=== PATIENT | female | born 1960 | race Caucasian/White ===

== ENCOUNTER 2018-07-13 12:35 | Emergency (ER) | payer BC ==
[~2018-07-13] VITALS: Ht 152.4 cm; Wt 79.4 kg
[~2018-07-13 12:35] MED LIST: ALBUTEROL2.5 MG/3 M INH; FENOFIBRATE134 MG PO; MONTELUKAST SOD10 MG PO; OMEPRAZOLE20 MG PO; PAXIL20 MG PO; PREDNISONE20 MG PO
[2018-07-13] MEDS ORDERED: NORCO 5-325 TA1 EACH PO (14:29)
== END 2018-07-13 14:41 | disposition home or self-care (01) ==
LOC: ED 12:35
DX: S83.92XA Sprain of unspecified site of left knee, initial encounter (principal); J45.909 Unspecified asthma, uncomplicated; Z87.891 Personal history of nicotine dependence; Z79.52 Long term (current) use of systemic steroids; X50.1XXA Overexertion from prolonged static or awkward postures, initial encounter
CPT/HCPCS: 73560; 99283

== ENCOUNTER 2022-07-30 14:40 | Emergency (ER) | payer BC ==
[~2022-07-30] VITALS: Ht 154.9 cm; Wt 77.1 kg
[~2022-07-30 14:40] MED LIST changes: +NORCO 5-325 TA1 EACH PO; +SINGULAIR10 MG PO
[2022-07-30] MEDS ORDERED: ATORVASTATIN CA20 MG PO (14:47)
[2022-07-30] MEDS ORDERED: METFORMIN HCL500 MG PO (14:47)
[2022-07-30] MEDS ORDERED: HYDROCODON-ACE1 EA11 PO (16:02)
== END 2022-07-30 16:28 | disposition home or self-care (01) ==
LOC: ED 14:40
DX: S83.91XA Sprain of unspecified site of right knee, initial encounter (principal); J45.909 Unspecified asthma, uncomplicated; Z87.891 Personal history of nicotine dependence; Z79.899 Other long term (current) drug therapy; Z79.84 Long term (current) use of oral hypoglycemic drugs; X58.XXXA Exposure to other specified factors, initial encounter
CPT/HCPCS: 73560; 99283-25; A9270

== ENCOUNTER 2022-10-06 06:18 | Day surgery (SDC) | payer BC ==
[2022-10-03 10:21] VITALS: BP 129/84
[~2022-10-06] VITALS: Ht 154.9 cm; Wt 79.5 kg
[~2022-10-06 06:18] MED LIST changes: +ATORVASTATIN CA20 MG PO; +HYDROCODON-ACE1 EA11 PO; +METFORMIN HCL500 MG PO
[2022-10-06] MEDS ORDERED: CO Q-10100 MG PO (06:38)
[2022-10-06 06:43] VITALS: BP 132/85
[2022-10-06] MEDS ORDERED: CELECOXIB200 MG PO (08:27)
[2022-10-06] MEDS ORDERED: HYDROCODON-ACE1 EA10 PO (08:27)
--- NOTE | 2022-10-06 08:43 | NUR ---
10/06/22 0843 Meena Pratt 0826- PT ARRIVES TO PACU NONAROUSABLE TO STIMULI. PT NEEDING A JAW THRUST TO MAINTAIN PATENT AIRWAY. RESP EVEN AND UNLABORED. OXYGEN SAT MID TO HIGH 90'S ON 6L VIA MASK. OXYGEN SAT INCREASING WITH JAW THRUST. 0835- CBG 116. 0836- PT AROUSING TO STIMULI. PT OPENS HER EYES. PT ENCOURAGED TO TAKE DEEP BREATHS. PT FALLS INSTANTLY BACK TO SLEEP. PT IS ABLE TO MAINTAIN HER OWN AIRWAY WITHOUT A JAW THRUST. 0841- PT AROUSABLE TO STIMULI. ENCOURAGED TO TAKE BREATHS SHE IS SNORING WHEN ASLEEP. PT IS ABLE TO DO THIS AND INSTANTLY FALLS BACK TO SLEEP.
[2022-10-06 09:21] VITALS: BP 137/82
--- NOTE | 2022-10-06 09:27 | NUR ---
0915 PT BACK TO DS. DENIES NAUSEA, REPORTS DISCOMFORT TO RT KNEE. 12/02. WATER GRAHM CRACKERS AND COFFEE GIVEN PT TOLERATES WELL. AT BED SIDE. NORCO GIVEN FOR PAIN. WARM BLANKETS PLACED ON PT, CALL LIGHT WITHIN REACH.
[2022-10-06 10:05] VITALS: BP 117/74
--- NOTE | 2022-10-06 10:43 | NUR ---
1000 PT AMBULATED TO BATHROOM WITH MIMINAL ASSIST. SHE WAS ABLE TO VOID 300ML OF CLEAR YELLOW URINE,
--- NOTE | 2022-10-06 11:21 | OR ---
[facility] [address], [place] [address] Signed DATE OF OPERATION: 10/06/2022 SURGEON: Adonis Meléndez MD PREOPERATIVE DIAGNOSIS: Medial meniscus tear, right knee. POSTOPERATIVE DIAGNOSES: 1. Medial meniscus tear, right knee. 2. Cartilaginous loose body, right knee. PROCEDURES PERFORMED: 1. Right knee arthroscopy with partial medial meniscectomy. 2. Arthroscopic removal of loose body. PERSONNEL SPECIALIST: None. ANESTHESIA: General. BLOOD LOSS: Minimal. BRIEF HISTORY: Beryl is a 62-year-old female with progressive worsening of pain and locking in her knee. She had mild osteoarthritic changes and a meniscus tear on the MRI. Risks and benefits of operative treatment were discussed and she elected to proceed. Once consent was obtained she was taken to the operating room. After adequate anesthesia she was placed on operating room table. Left leg was flexed, abducted and externally rotated on a well-padded leg ring. The right was placed in well-padded leg ring with no tourniquet. The leg was then prepped and draped in a standard sterile fashion. The portals were then injected with 0.25% Marcaine with epinephrine. The standard inferolateral and superolateral portals were made. The scope was introduced in the knee. 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 The patella was relatively intact. There was moderate synovitis throughout the knee. 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 There was meniscus Electronically Signed By: ADONIS MELÉNDEZ MD 10/06/22 1121 PATIENT NAME: BERYL CALIXTO OPERATIVE REPORT DATE OF : 56 REPORT #: [id number] PHYSICIAN: ADONIS MELÉNDEZ MD PCP: FE MOON REPORT IS CONFIDENTIAL AND NOT TO BE RELEASED WITHOUT AUTHORIZATION [facility] [address], [place] [address] Signed tear posteriorly. ACL and PCL were intact. Lateral compartment was intact, although there was a loose body under the meniscus posteriorly. DESCRIPTION OF OPERATION: Standard inferomedial portal was made after localizing with a spinal needle. The straight and curved biters were used to trim the meniscus tear back to a stable rim. This was smoothed using the shaver. Visualization of the loose body was then undertaken. This removed using a clamp. The debris was then evacuated throughout the knee. The scope was withdrawn. Portals were closed with 3-0 nylon. The knee was injected with 60 mg Toradol at the end of the case. The wound was dressed with Adaptic, ABD, and Az wrap. She tolerated the procedure well. All sponge, needle, and instrument counts were correct. Adonis Meléndez MD BA/BRENDAL /[id number] Copies: ~ Electronically Signed By: ADONIS MELÉNDEZ MD 10/06/22 1121 PATIENT NAME: BERYL CALIXTO OPERATIVE REPORT DATE OF : 56 REPORT #: [id number] PHYSICIAN: ADONIS MELÉNDEZ MD PCP: FE MOON REPORT IS CONFIDENTIAL AND NOT TO BE RELEASED WITHOUT AUTHORIZATION
--- NOTE | 2022-10-06 12:04 | NUR ---
PT ALERT, ORIENTED AND SUPPORTED BY HER PAT. PAT WILL HEAD TO CAFETERIA DURING SURGERY. PROVIDED A PAGER. ALL QUESTIONS ASKED ANSWERED PT SEEMS READY. GAVE BLESSING, EVELINA STEPHEN IN. WILL FOLLOW
--- NOTE | 2022-10-07 07:31 | EKG ---
[facility] [address] [facility] [place] [address] Signed Normal sinus rhythm Normal ECG When compared with ECG of 02-JAN-2019 14:29, Criteria for Anterior infarct are no longer present T wave inversion now evident in Inferior leads Confirmed by LINNETTE BARR MD ([id number]) on 10/07/2022 7:31:46 AM Electronically Signed By: LINNETTE BARR MD 10/07/22 0731 PATIENT NAME: ANGELITA CALIXTO NASRIN Electrocardiogram DATE OF : 56 PHYSICIAN: LINNETTE BARR MD REPORT #: [id number] REPORT IS CONFIDENTIAL AND NOT TO BE RELEASED WITHOUT AUTHORIZATION
== END 2022-10-06 10:15 | disposition home or self-care (01) ==
LOC: DS 06:18
PROVIDERS: ATTEND Specialist
PROC: 0SBC4ZZ Excision of Right Knee Joint, Percutaneous Endoscopic Approach (ICD-10-PCS; principal; 2022-10-06 08:00)
DX: S83.241A Other tear of medial meniscus, current injury, right knee, initial encounter (principal); M23.41 Loose body in knee, right knee; J45.909 Unspecified asthma, uncomplicated; E11.9 Type 2 diabetes mellitus without complications; Z79.84 Long term (current) use of oral hypoglycemic drugs; Z79.899 Other long term (current) drug therapy; Z87.891 Personal history of nicotine dependence
CPT/HCPCS: 01400; 93005; 93010; J0131; J0690; J1885; J2405; J2704; J2765; J3010; J7121